=== PATIENT | female | born 1950 | race Caucasian/White ===

== ENCOUNTER → 2016-06-18 | Outpatient (CLI) | payer BC ==
[~2016-06-18] MED LIST: CONJ0.453 PO; EPP3/2 IM; GADAVIST IV PRN
--- NOTE | 2016-06-18 13:23 | DIAGNOSTIC IMAGING REPORT ---
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 COMPARISON STUDY: Brain MRI 05/31/2014. FINDINGS: There are no areas of restricted diffusion to suggest acute infarction. The midline structures are intact. The paranasal sinuses are clear. The mastoid air cells are clear. The ventricles and sulci are within normal limits for age. There is no mass, hematoma, midline shift. The major vascular flow-voids at the skull base are well maintained. Postcontrast sequences show no areas of abnormal enhancement within the brain. There are few scattered foci of T2 hyperintensity within the right matter. These remain stable and likely represent microvascular ischemic change. The left internal auditory canals within normal limits. There is a small enhancing nodule deep within the right internal auditory canal. This is slightly increased in size. This currently measures 3 mm, previously measuring 2 mm. IMPRESSION: 1. Slight increase in size in the 3 mm enhancing nodule deep within the right internal auditory canal. This is consistent with a vestibular schwannoma. 2. Otherwise, no significant change compared to the prior studies. No acute intracranial abnormality. Electronically signed by: Krishan Vega M.D. 06/18/2016 1:21 PM
== END | disposition home or self-care (01) ==
LOC: C.OPENMRI 10:42
PROVIDERS: ATTEND Family Medicine
DX: D33.3 Benign neoplasm of cranial nerves (principal)

== ENCOUNTER → 2016-06-25 | Outpatient (CLI) | payer BC ==
[~2016-06-25] MED LIST changes: -GADAVIST IV PRN
--- NOTE | 2016-06-25 17:00 | MAMMOGRAPHY REPORT ---
BILATERAL DIGITAL SCREENING MAMMOGRAM WITH CAD: 06/25/2016 CLINICAL HISTORY: Routine screening. Patient has no complaints. TECHNIQUE: Current study was also evaluated with a Computer Aided Detection (CAD) system. Bilatera l CC and MLO views were obtained. COMPARISON: Comparison is made to exams dated: 06/22/2015 mammogram, 06/21/2014 mammogram, 06/20/2013 cong mogram, 06/18/2012 mammogram, 06/17/2011 mammogram, and 06/05/2010 mammogram - [facility]. BREAST COMPOSITION: The tissue of both breasts is heterogeneously dense, which may obscure small ma sses. FINDINGS: No suspicious masses, calcifications, or areas of architectural distortion are noted in e ither breast. There has been no significant interval change compared to prior exams. Bilateral asym metries and scattered bilateral benign-appearing calcifications are not significantly changed. IMPRESSION: ACR BI-RADS CATEGORY 2: BENIGN There is no mammographic evidence of malignancy. A 1 year screening mammogram is recommended. The p atient will receive written notification of the results. Approximately 10% of breast cancers are not detected with mammography. A negative mammographic repor t should not delay biopsy if a clinically suggestive mass is present. Kindra Smith M.D. /:06/25/2016 16:09:11 Gauge And Weigh Machine Adjuster: Evangelina Yap, [facility] letter sent: Normal 1/2 BI-RADS Code: ACR BI-RADS Category 2: Benign
== END | disposition home or self-care (01) ==
LOC: C.MAMM 13:32
PROVIDERS: ATTEND Obstetrics & Gynecology
DX: Z12.31 Encounter for screening mammogram for malignant neoplasm of breast (principal)

== ENCOUNTER → 2016-12-18 | Outpatient (CLI) | payer BC ==
[2016-12-18 12:58] LABS: CHOLESTEROL/HDL RATIO 3.3
== END | disposition home or self-care (01) ==
LOC: C.LABBFT 09:54
PROVIDERS: ATTEND Family Medicine
DX: E78.5 Hyperlipidemia, unspecified (principal)

== ENCOUNTER → 2017-07-08 | Outpatient (CLI) | payer BC ==
--- NOTE | 2017-07-09 13:43 | MAMMOGRAPHY REPORT ---
BILATERAL DIGITAL SCREENING MAMMOGRAM TOMOSYNTHESIS WITH CAD: 07/08/2017 CLINICAL HISTORY: Routine screening. TECHNIQUE: Breast tomosynthesis in addition to standard 2D mammography was performed. Current study was also evaluated with a Computer Aided Detection (CAD) system. COMPARISON: Comparison is made to exams dated: 06/25/2016 mammogram, 06/22/2015 mammogram, 06/21/2014 cong mogram, 06/20/2013 mammogram, 06/18/2012 mammogram, and 06/17/2011 mammogram - [facility] . BREAST COMPOSITION: The tissue of both breasts is heterogeneously dense, which may obscure small mas ses. FINDINGS: There are possibly increasing regional punctate microcalcifications in the lateral middle and posterior left breast, warranting additional spot magnification views. There are a few stable scattered and loosely grouped punctate microcalcifications in the right breast . No other suspicious mass, architectural distortion or asymmetry is identified bilaterally. IMPRESSION: ACR BI-RADS CATEGORY 0: INCOMPLETE EVALUATION: NEED ADDITIONAL IMAGING EVALUATION The possibly increasing regional punctate microcalcificationsin the left lateral breast needs additio nal evaluation. The patient will be called to schedule an appointment. Approximately 10% of breast cancers are not detected with mammography. A negative mammographic report should not delay biopsy if a clinically suggestive mass is present. Poly Gómez M.D. ay/:07/08/2017 16:08:22 Mental Health Worker: Attila MOLINA(R)(M), [facility] letter sent: Addl Imaging 0 BI-RADS Code: ACR BI-RADS Category 0: Incomplete Evaluation: Need Additional Imaging Evaluation
== END | disposition home or self-care (01) ==
LOC: C.MAMM 14:12
PROVIDERS: ATTEND Obstetrics & Gynecology
DX: Z12.31 Encounter for screening mammogram for malignant neoplasm of breast (principal)

== ENCOUNTER → 2017-07-21 | Outpatient (CLI) | payer BC ==
--- NOTE | 2017-07-21 13:30 | MAMMOGRAPHY REPORT ---
UNILATERAL LEFT DIGITAL DIAGNOSTIC MAMMOGRAM: 07/21/2017 CLINICAL HISTORY: 67-year-old woman called back from screening mammography for left breast microcalci fications. No family history of breast cancer. TECHNIQUE: Spot magnification left CC and ML views were obtained. COMPARISON: Comparison is made to exams dated: 07/08/2017 mammogram, 06/25/2016 mammogram, 06/22/2015 ma mmogram, 06/21/2014 mammogram, 06/20/2013 mammogram, and 06/18/2012 mammogram - [facility]. BREAST COMPOSITION: The tissue of the left breast is heterogeneously dense, which may obscure small masses. FINDINGS: There are regional punctate microcalcifications in the lower outer and central left breast , that are slightly increased in number comparing to the more remote prior mammograms from 2007, 2008 and 2009. No associate architectural distortion or obvious mass. Some of the calcifications demons trate layering on the spot magnification ML view suggesting benign milk of calcium, however, not all of the calcifications definitively layer and given the increase in number there are therefore indeter minate. Definitive characterization with tissue sampling with the most numerous grouping in the cent ral breast is recommended. IMPRESSION: ACR BI-RADS CATEGORY 4: SUSPICIOUS 1. Left breast stereotactic guided biopsy is recommended for increasing regional punctate microcalci fications in the central/lower outer left breast. These results and recommendations were discussed with the patient at the time of the exam. She tenta tively scheduled the biopsy prior to leaving our department. Approximately 10% of breast cancers are not detected with mammography. A negative mammographic report should not delay biopsy if a clinically suggestive mass is present. Poly Gómez M.D. ay/:07/21/2017 08:22:32 School Examiner: Evangelina WALKER)(M), [facility] letter sent: Abnormal 4/5 BI-RADS Code: ACR BI-RADS Category 4: Suspicious
== END | disposition home or self-care (01) ==
LOC: C.MAMM 07:49
PROVIDERS: ATTEND Obstetrics & Gynecology
DX: R92.0 Mammographic microcalcification found on diagnostic imaging of breast (principal)

== ENCOUNTER → 2017-07-27 | Outpatient (CLI) | payer BC ==
--- NOTE | 2017-07-27 13:22 | Discharge Instructions ---
Discharge Instructions Procedure Procedure Date: Jul 27, 2017. Reason for visit: Left Calcifications. Discharge Discharge Date: Jul 27, 2017. Discharge Diagnosis: post left breast stereotactic guided biopsy Medications Restart Stopped Medication(s): May resume Aspirin today Instructions Activity Recommendations: Additional Limitations (see below) Return to School/Work: no limitations Recommended Home Diet: No Limitations Provider Instructions: ACTIVITY RECOMMENDATIONS: * No lifting, pushing, pulling or exercising the affected side for three days. RETURN TO SCHOOL/WORK: * You may return to work/school after the procedure, but do not perform any strenuous activities for 24 to 48 hours. MEDICATIONS: * Tylenol (two 325 mg) every four to six hours if needed for mild pain (if not allergic to Tylenol). DIET: * Resume previous diet. SPECIAL CARE INSTRUCTIONS: * Keep biopsy site dry for 24 hours. May shower after 24 hours, but do not soak (bathe) incision. * May remove Tegaderm (plastic patch) tomorrow AFTER showering. * Leave the steri-strips on for one week. Allow the steri-strips to fall off by themselves. If not off after one week, you may remove them. You may place a Bandaid crosswise over the strips, if desired. * Apply ice 10 minutes on and 10 minutes off as needed. * Wear a bra at bedtime to sleep more comfortably for 2-3 days. * Your referring physician should have the results after approximately 5 to 7 business days. * Call for unusual bleeding, fever, drainage, etc or if you have any questions call [phone] during normal business hours or after hours call Dr Gómez, . FOLLOW UP VISIT: Follow-up with Referring Physician as scheduled. Allergies Coded Allergies: BEE STING (Verified Allergy, Unknown, HIVES, 10/05/14) Hollie Roman Recommendations: Call your doctor if: * Temperature above 101 degrees * Pain not relieved by pain medicine ordered * There is increased drainage or redness from any incision * You have any unanswered questions or concerns. Your Doctors Instructions noted above were prepared by provider Poly Gómez. Patient Signature Section: Patient Instructions Signature Page Kathy Brown Patient (or Guardian) Signature/Date: I have read and understand the instructions given to me by my caregivers. Caregiver/RN/Doctor Signature/Date: The above-named patient and/or guardian has received patient instructions on this date. + Original Patient Signature Page (only) stays with chart. Please make copy for patient.
--- NOTE | 2017-07-27 15:18 | MAMMOGRAPHY REPORT ---
STEREOTACTIC GUIDED BIOPSY LEFT BREAST: 07/27/2017 CLINICAL HISTORY: Increasing round and punctate regional microcalcifications in the lateral left [address]. Patient presents for stereotactic biopsy of field sales representative microcalcifications. COMPARISON: Comparison is made to exams dated: 07/21/2017 mammogram, 07/08/2017 mammogram, 06/25/2016 ma mmogram, 06/22/2015 mammogram, 06/21/2014 mammogram, and 06/20/2013 mammogram - [facility] PATIENT CONSENT: After explaining the risks, benefits and alternatives of the procedure to the patien t, informed consent was obtained both verbally and in writing. Specific risks include: Bleeding, inf ection, puncture of adjacent structure, pain, nontarget biopsy, sampling error, metal allergy and med ication reaction. PROCEDURE DESCRIPTION: A time-out was performed and the left breast was confirmed as the site of biop sy. The patient was placed prone on the stereotactic biopsy table and the breast was placed in CC fro m below compression. A tomosynthesis flagstone layer image was obtained that demonstrated numerous microcalcifi cations throughout nearly the entire lateral left breast, many of which were demonstrating layering i n the current positioning. Therefore targeting was performed of a small non-layering grouping of marisa rocalcifications near the lateral posterior aspect of the left breast. Additionally, when comparing to prior available mammograms, these lateral calcifications were increased comparing back to the most remote 2005, 2007 and 2008 mammograms. After slight repositioning, the grouping of non-layering microcalcifications in the lateral posterior left breast were clearly visualized and amenable to stereotactic biopsy. The calcifications were tar geted utilizing the coordinates obtained by the computer. Then an additional prefire tomosynthesis v iew was obtained. The skin was prepped with Betadine. 1% Lidocaine with and without epinipherine was administered as local anesthesia. A small skin incision was made. Through the incision, the needle was inserted to the depth determined by the computer. 7 samples were obtained using a Alai 9-g auge vacuum-assisted biopsy device. The specimen radiograph demonstrated several field sales representative micro calcifications, therefore, a metallic marker was placed at the biopsy site. There was no immediate co mplication. Hemostasis was achieved after several minutes of manual compression. The samples were se nt to pathology in an appropriately labeled container. Postprocedure CC and ML views of the left breast were obtained. There is a new dumbbell-shaped meta llic biopsy marker in the approximate 3:00 far posterior left breast, denoting the site of recent jane reotactic biopsy. No significant postbiopsy hematoma is seen. IMPRESSION: STEREOTACTIC GUIDED BIOPSY Status post left breast stereotactic guided biopsy of a grouping of non-layering microcalcifications within a larger area of increasing round and punctate regional microcalcifications in the lateral pos terior left breast. A metallic biopsy marker was placed at the site. The patient will receive notification of the biopsy results from her referring physician. Poly Gómez M.D. ay/:07/27/2017 13:53:23 Attending Technologist: Maddie Joshi RT(R)(M), [facility] Auto Electrical Technician: Erica Jiménez RT(R)(M), [facility]
--- NOTE | 2017-07-27 15:20 | MAMMOGRAPHY REPORT ---
UNILATERAL LEFT DIGITAL DIAGNOSTIC MAMMOGRAM: 07/27/2017 CLINICAL HISTORY: Status post left breast stereotactic biopsy of a community representative grouping of increas ing regional round and punctate microcalcifications in the lateral left breast. Please refer to report from left breast stereotactic guided biopsy performed at the same time for ful l detail. IMPRESSION: POST PROCEDURE IMAGING FOR MARKER PLACEMENT Please refer to report from left breast stereotactic guided biopsy performed at the same time for ful l detail. Approximately 10% of breast cancers are not detected with mammography. A negative mammographic report should not delay biopsy if a clinically suggestive mass is present. Poly Gómez M.D. ay/:07/27/2017 13:23:34 Attending Technologist: Maddie Joshi RT(R)(M), [facility] Stationary Steam Engineer: Erica Jiménez RT(R)(M), [facility] BI-RADS Code: Post Procedure Imaging For Marker Placement
== END | disposition home or self-care (01) ==
LOC: C.MAMM 12:36
PROVIDERS: ATTEND Obstetrics & Gynecology
DX: R92.1 Mammographic calcification found on diagnostic imaging of breast (principal); N60.12 Diffuse cystic mastopathy of left breast; N60.42 Mammary duct ectasia of left breast; N60.82 Other benign mammary dysplasias of left breast

== ENCOUNTER → 2017-10-01 | Outpatient (CLI) | payer BC | END | disposition home or self-care (01) | LOC: C.MAMM 08:27 | PROVIDERS: ATTEND Obstetrics & Gynecology | DX: Z78.0 Asymptomatic menopausal state (principal); M85.89 Other specified disorders of bone density and structure, multiple sites ==